=== PATIENT | male | born 2000 | race African-American/Black ===

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

== ENCOUNTER 2020-05-16 13:20 | Emergency (ER) | payer OTHER ==
[~2020-05-16] VITALS: Ht 210.8 cm; Wt 58.6 kg
[~2020-05-16 13:20] MED LIST changes: +ONDA4TAB7 PO
[2020-05-16] MEDS ORDERED: ONDANSETRON PF 4 MG/2 ML VIAL. ONE (13:30)
[2020-05-16] MEDS: ONDANSETRON PF 4 MG/2 ML VIAL. IVP ONE (13:34)
[2020-05-16] MEDS: IV NORMAL SALINE 1,000ML 1,000 ML IV ONE (13:34)
[2020-05-16 13:52] LABS: BASO % 1 % (0-3); EOS % 1 % (0-3); HEMATOCRIT 45.8 % (39.0-53.0); HEMOGLOBIN 15.4 g/dL (13.0-17.5); LYMPH # 2.1 x10^3/uL (1.0-4.8); LYMPH % 26 % (24-48); MEAN CORPUSCULAR HEMOGLOBIN 31 pg (25-35); MEAN CORPUSCULAR HGB CONC 34 g/dL (31-37); MEAN CORPUSCULAR VOLUME 92 fL (79-100); MONO # 0.3 x10^3/uL (0.0-1.1); MONO % 4 % (0-9); NEUT # 5.6 x10^3uL (1.8-7.7); NEUT % 69 % (31-73); PLATELET COUNT 285 x10^3/uL (140-400); RED BLOOD COUNT 5.01 x10^6/uL (4.30-5.70); RED CELL DISTRIBUTION WIDTH 13.1 % (11.5-14.5); WHITE BLOOD COUNT 8.1 x10^3/uL (4.0-11.0)
[2020-05-16 13:55] LABS: CALCIUM 10.3 mg/dL (8.5-10.1); GFR 116.5; POTASSIUM 4.4 mmol/L (3.5-5.1)
[2020-05-16 14:01] LABS: ALBUMIN/GLOBULIN RATIO 1.6 (1.0-1.7); TOTAL BILIRUBIN 0.7 mg/dL (0.2-1.0); TOTAL PROTEIN 8.2 g/dL (6.4-8.2)
--- NOTE | 2020-05-16 14:02 | RAD ---
ABDOMEN AP Clinical Indication: Reason: periumbilical abdominal pain, vomiting / Spl. Instructions: / History: Comparison: None. Findings: The visualized lung bases are clear. Small amount of air in the stomach. Mild stool in the rectum. No dilated loops of bowel are seen. The bowel gas pattern is nonobstructive. No obvious organomegaly. There is no radiopaque foreign body or calculus. There is no acute bony abnormality. IMPRESSION: Nonobstructive bowel gas pattern. Electronically signed by: Fahad Mak MD (05/16/2020 1:59 PM) [id number]
[2020-05-16] MEDS ORDERED: ONDA4TAB12 PO (14:05)
--- NOTE | 2020-05-16 14:08 | PHYS DOC ---
Past History Past Medical History: Asthma Past Surgical History: Other Additional Past Surgical Histo: right thumb surgery Smoking: Second-hand Alcohol Use: Rarely Drug Use: Marijuana General Adult EDM: Chief Complaint: ABDOMINAL PAIN HPI: HPI: 19-year-old male presents with nausea and vomiting. This started around 7 AM this morning. The patient was feeling fine yesterday. He has been unable to keep any liquids or solids today. He has not had a fever. He has some generalized abdominal cramping that started after the vomiting. He has no known sick contacts. No known COVID-19 exposures. Review of Systems: Review of Systems: Constitutional: chills Eyes: Denies change in visual acuity HENT: Denies nasal congestion or sore throat Respiratory: Denies cough or shortness of breath Cardiovascular: Denies chest pain or edema GI: Generalized abdominal pain, nausea, vomiting. Denies bloody stools or diarrhea : Denies dysuria Musculoskeletal: Denies back pain or joint pain Integument: Denies rash Neurologic: Denies headache, focal weakness or sensory changes Endocrine: Denies polyuria or polydipsia Lymphatic: Denies swollen glands Psychiatric: Denies depression or anxiety Heart Score: Risk Factors: Risk Factors: DM, Current or recent (<one month) smoker, HTN, HLP, family history of CAD, obesity. Risk Scores: Score 0 - 3: 2.5% MACE over next 6 weeks - Discharge Home Score 4 - 6: 20.3% MACE over next 6 weeks - Admit for Clinical Observation Score 7 - 10: 72.7% MACE over next 6 weeks - Early Invasive Strategies Current Medications: Current Meds: Current Medications Medications (Trade) Dose Ordered Sig/Niya Start Time Stop Time Status Last Admin Dose Admin Ondansetron HCl (Zofran) 4 mg 1X ONCE 05/16/20 13:45 05/16/20 13:48 DC 05/16/20 13:34 4 MG Sodium Chloride 1,000 ml @ 1,000 mls/hr 1X ONCE 05/16/20 13:45 05/16/20 14:44 05/16/20 13:34 1,000 MLS/HR Allergies: Allergies: Allergies Coded Allergies Type Severity Reaction Last Updated Verified No Known Drug Allergies 11/10/19 No Physical Exam: PE: Constitutional: Well developed, well nourished, no acute distress, non-toxic appearance. [] HENT: Normocephalic, atraumatic, bilateral external ears normal, oropharynx moist, no oral exudates, nose normal. [] Eyes: PERRLA, EOMI, conjunctiva normal, no discharge. [] Neck: Normal range of motion, no tenderness, supple, no stridor. [] Cardiovascular: Heart rate regular rhythm, no murmur [] Lungs & Thorax: Bilateral breath sounds clear to auscultation [] Abdomen: Bowel sounds normal, soft, no tenderness, no masses, no pulsatile masses. [] Skin: Warm, dry, no erythema, no rash. [] Back: No tenderness, no CVA tenderness. [] Extremities: No tenderness, no cyanosis, no clubbing, ROM intact, no edema. [] Neurologic: Alert and oriented X 3, normal motor function, normal sensory function, no focal deficits noted. [] Psychologic: Affect normal, judgement normal, mood normal. [] Current Patient Data: Labs: Laboratory Tests Test 05/16/20 13:35 White Blood Count 8.1 x10^3/uL (4.0-11.0) Red Blood Count 5.01 x10^6/uL (4.30-5.70) Hemoglobin 15.4 g/dL (13.0-17.5) Hematocrit 45.8 % (39.0-53.0) Mean Corpuscular Volume 92 fL (79-100) Mean Corpuscular Hemoglobin 31 pg (25-35) Mean Corpuscular Hemoglobin Concent 34 g/dL (31-37) Red Cell Distribution Width 13.1 % (11.5-14.5) Platelet Count 285 x10^3/uL (140-400) Neutrophils (%) (Auto) 69 % (31-73) Lymphocytes (%) (Auto) 26 % (24-48) Monocytes (%) (Auto) 4 % (0-9) Eosinophils (%) (Auto) 1 % (0-3) Basophils (%) (Auto) 1 % (0-3) Neutrophils # (Auto) 5.6 x10^3uL (1.8-7.7) Lymphocytes # (Auto) 2.1 x10^3/uL (1.0-4.8) Monocytes # (Auto) 0.3 x10^3/uL (0.0-1.1) Eosinophils # (Auto) 0.0 x10^3/uL (0.0-0.7) Basophils # (Auto) 0.0 x10^3/uL (0.0-0.2) Sodium Level 142 mmol/L (136-145) Potassium Level 4.4 mmol/L (3.5-5.1) Chloride Level 105 mmol/L (98-107) Carbon Dioxide Level 22 mmol/L (21-32) Anion Gap 15 (6-14) H Blood Urea Nitrogen 7 mg/dL (8-26) L Creatinine 1.0 mg/dL (0.7-1.3) Estimated GFR (Cockcroft-Gault) 116.5 BUN/Creatinine Ratio 7 (6-20) Glucose Level 113 mg/dL (70-99) H Calcium Level 10.3 mg/dL (8.5-10.1) H Total Bilirubin Pending Aspartate Amino Transferase (AST) Pending Alanine Aminotransferase (ALT) Pending Alkaline Phosphatase Pending Total Protein Pending Albumin Pending Albumin/Globulin Ratio Pending Vital Signs: Vital Signs Date Time Temp Pulse Resp B/P (MAP) Pulse Ox O2 Delivery O2 Flow Rate FiO2 05/16/20 13:27 97.8 58 14 116/87 (97) 100 Room Air EKG: EKG: [] Radiology/Procedures: Radiology/Procedures: [] Impressions: ABDOMEN AP Clinical Indication: Reason: periumbilical abdominal pain, vomiting / Spl. Instructions: / History: Comparison: None. Findings: The visualized lung bases are clear. Small amount of air in the stomach. Mild stool in the rectum. No dilated loops of bowel are seen. The bowel gas pattern is nonobstructive. No obvious organomegaly. There is no radiopaque foreign body or calculus. There is no acute bony abnormality. IMPRESSION: Nonobstructive bowel gas pattern. Electronically signed by: Fahad Zuñiga MD (05/16/2020 1:59 PM) [id number] DICTATED AND SIGNED BY: FAHAD ZUIÑGA MD DATE: 05/16/20 1359 CC: BELLE MORRISSEY DO; GIAN MONTERO ~ Course & Med Decision Making: Course & Med Decision Making Pertinent Labs and Imaging studies reviewed. (See chart for details) The patient's labs are unremarkable. We gave him a liter of normal saline and 4 mg of Zofran IV. He has had no further vomiting. His urinalysis is negative for infection. This is likely a viral illness. I will discharge him with Zofran. He is stable for discharge at this time. [] Alyssa Disclaimer: Alyssa Disclaimer: This electronic medical record was generated, in whole or in part, using a voice recognition dictation system. Departure Departure: Impression: Primary Impression: Nausea & vomiting Qualified Codes: R11.2 - Nausea with vomiting, unspecified Disposition: HOME/RESIDENCE PRIOR TO ADM Condition: STABLE Referrals: GIAN MONTERO (PCP) Patient Instructions: Nausea and Vomiting, Stmu-en-Xqoe Scripts Ondansetron (ONDANSETRON ODT) 4 Mg Tab.rapdis 1 TAB PO PRN Q6-8HRS PRN for VOMITING, #16 TAB Prov: BELLE MORRISSEY DO 05/16/20 Justification of Admission: Justification of Admission: Justification of Admission Dx: N/A BELLE MORRISSEY DO May 16, 2020 14:08
[2020-05-16 15:16] LABS: BACTERIA,URINE 0 /HPF (0-FEW); BILIRUBIN,URINE NEG (NEG); CLARITY,URINE CLEAR; COLOR,URINE YELLOW; GLUCOSE,URINE NEG (NEG); NITRITE,URINE NEG (NEG); RBC,URINE 0 /HPF (0-2); SQUAMOUS EPITHELIAL CELL,UR OCC /LPF
[2020-05-16 15:37] VITALS: BP 122/93
== END 2020-05-16 15:35 | disposition home or self-care (01) ==
LOC: ER 13:20
DX: R11.2 Nausea with vomiting, unspecified (principal); R10.84 Generalized abdominal pain; J45.909 Unspecified asthma, uncomplicated; Z77.22 Contact with and (suspected) exposure to environmental tobacco smoke (acute) (chronic)
CPT/HCPCS: 36415; 74018; 80053; 81001; 85025; 96361; 96374; 99284; J2405; J7030

== ENCOUNTER 2021-03-09 09:21 | Emergency (ER) | payer OTHER ==
[~2021-03-09] VITALS: Ht 182.9 cm; Wt 64.1 kg
[~2021-03-09 09:21] MED LIST changes: -CETI10TA24 PO; +CETI10TA74 PO; +ONDA4TAB12 PO
--- NOTE | 2021-03-09 09:31 | PHYS DOC ---
Past History Past Medical History: Asthma Past Surgical History: Other Additional Past Surgical Histo: right thumb surgery Smoking: Second-hand Alcohol Use: Rarely Drug Use: Marijuana Adult General HPI HPI Patient is a 20-year-old male presenting for shortness of breath. Has history of asthma, typically takes Flovent his maintenance inhaler and utilizes rescue inhaler prophylactically before working out otherwise states he uses it a couple times a month. Reports change of weather and worsening allergies in local area have caused him to have rhinorrhea, congestion and dry cough that is worsened his bronchospasm. He has had to utilize his albuterol rescue inhaler more than usual but ran out yesterday. States he woke up this morning at 2 AM having an acute coughing fit and chest tightness which is not gone away. He has not been able to sleep. He reports this feels like prior asthma exacerbation in the past. He has been hospitalized many times for asthma but is never been intubated. No other significant medical issues, denies any tobacco, alcohol or other drug use. No significant family medical issue for early cardiac disease. No fever, sick contacts, COVID-19 exposure Review of Systems Review of Systems Fourteen body systems of review of systems have been reviewed. See HPI for pertinent positives and negative responses, other vernon all other systems are negative, non-pertinent or non-contributory Allergies Allergies Allergies Coded Allergies Type Severity Reaction Last Updated Verified No Known Drug Allergies 11/10/19 No Physical Exam Physical Exam Constitutional: Well developed, well nourished, no acute distress, non-toxic appearance. Ambulatory without issues HENT: Normocephalic, atraumatic, bilateral external ears normal, oropharynx moist, no oral exudates, nose normal. Eyes: PERRLA, EOMI, conjunctiva normal, no discharge. Neck: Normal range of motion, no tenderness, supple, no stridor. Cardiovascular: Heart rate regular, sinus rhythm, no murmurs rubs or gallops Lungs & Thorax: Increased work of breathing but no tachypnea, diminished lung sounds bilaterally with end expiratory wheezing present, no accessory muscle use Abdomen: Bowel sounds normal, soft, no tenderness, no masses, no pulsatile masses. Nonsurgical abdomen, no peritoneal signs Skin: Warm, dry, no erythema, no rash. Back: No tenderness, no CVA tenderness. Extremities: No tenderness, no cyanosis, no clubbing, ROM intact, no edema. Neurologic: Alert and oriented X 3, grossly normal motor & sensory function, no focal deficits noted. Psychologic: Affect normal, judgement normal, mood normal. Current Patient Data Vital Signs Vital Signs Date Time Temp Pulse Resp B/P (MAP) Pulse Ox O2 Delivery O2 Flow Rate FiO2 03/09/21 09:51 96 Room Air 03/09/21 09:51 99.5 68 20 150/76 (100) Vital Signs Date Time Temp Pulse Resp B/P (MAP) Pulse Ox O2 Delivery O2 Flow Rate FiO2 03/09/21 09:51 99.5 68 20 150/76 (100) 100 Room Air Lab Results Laboratory Tests Test 03/09/21 09:28 White Blood Count 5.5 x10^3/uL Red Blood Count 5.08 x10^6/uL Hemoglobin 15.4 g/dL Hematocrit 46.6 % Mean Corpuscular Volume 92 fL Mean Corpuscular Hemoglobin 30 pg Mean Corpuscular Hemoglobin Concent 33 g/dL Red Cell Distribution Width 13.4 % Platelet Count 221 x10^3/uL Neutrophils (%) (Auto) 55 % Lymphocytes (%) (Auto) 29 % Monocytes (%) (Auto) 15 % Eosinophils (%) (Auto) 0 % Basophils (%) (Auto) 1 % Neutrophils # (Auto) 3.0 x10^3uL Lymphocytes # (Auto) 1.6 x10^3/uL Monocytes # (Auto) 0.8 x10^3/uL Eosinophils # (Auto) 0.0 x10^3/uL Basophils # (Auto) 0.0 x10^3/uL Sodium Level 143 mmol/L Potassium Level 3.6 mmol/L Chloride Level 106 mmol/L Carbon Dioxide Level 25 mmol/L Anion Gap 12 Blood Urea Nitrogen 6 mg/dL Creatinine 1.1 mg/dL Estimated GFR (Cockcroft-Gault) 103.3 Glucose Level 96 mg/dL Calcium Level 10.0 mg/dL Troponin I Quantitative < 0.017 ng/mL Current Medications Medications (Trade) Dose Ordered Sig/Niya Route PRN Reason Start Time Stop Time Status Last Admin Dose Admin Albuterol Sulfate (Ventolin) 2.5 mg 1X ONCE NEB 03/09/21 09:45 03/09/21 09:46 DC 03/09/21 09:45 Prednisone (Prednisone) 60 mg 1X ONCE PO 03/09/21 09:45 03/09/21 09:46 DC 03/09/21 09:45 Albuterol Sulfate (Ventolin) 2.5 mg 1X ONCE NEB 03/09/21 10:45 03/09/21 10:46 EKG EKG EKG ordered and interpreted by myself at 0935 hrs. as sinus rhythm at 64 bpm, unremarkable intervals, no axis deviation, no acute ischemic findings, no STEMI Radiology/Procedures Radiology/Procedures Chest AP portable at 0928: Reason for examination: Short of breath. The heart size is normal. Mediastinum is unremarkable. Lung leon are clear. No acute bony abnormalities are seen. Impression: No acute cardiopulmonary disease. Electronically signed by: Eliad Linares MD (03/09/2021 10:01 AM) [facility] Heart Score C/O Chest Pain: Yes HEART Score for Chest Pain: HEART Score for Chest Pain Response (Comments) Value History Slighlty/Non-Suspicious 0 ECG Normal 0 Age < 45 0 Risk Factors No Risk Factors 0 Troponin < Normal Limit 0 Total 0 Risk Factors: Risk Factors: DM, Current or recent (<one month) smoker, HTN, HLP, family history of CAD, obesity. Risk Scores: Risk Factors: DM, Current or recent (<one month) smoker, HTN, HLP, family history of CAD, obesity. Course & Med Decision Making Course & Med Decision Making Vitals stable, HPI and physical exam nonconcerning for emergent or surgical issues. ER work-up obtained and grossly nonconcerning Discussed most likely diagnosis of asthma exacerbation likely caused by change in weather and recent uptick in local allergies. Patient responded to ER intervention including x2 albuterol nebulized treatments and 60 mg prednisone Joint decision to discharge home with continued prednisone burst and refill albuterol inhaler. Patient has good access to primary care physician, can be seen this upcoming week, can call office tomorrow for refill of Flovent etc. Strict return precautions discussed with good understanding by patient, all questions and concerns addressed prior to ER departure Dragon Disclaimer Dragon Disclaimer This electronic medical record was generated, in whole or in part, using a voice recognition dictation system. Departure Departure: Impression: Primary Impression: Asthma exacerbation Disposition: HOME / SELF CARE / HOMELESS Condition: IMPROVED Referrals: GIAN MONTERO (PCP) Patient Instructions: Asthma, Acute Bronchospasm Additional Instructions: You were seen for an asthma exacerbation. Your exacerbation was likely caused by a change in weather and uptick in local seasonal allergies. You should be checking your peak flows daily and taking all of your controller and rescue inhalers as previously prescribed. It may take a few days for the steroids to begin to work, but use albuterol as needed for the next few days to help with symptoms. Prescriptions for both of these medications were provided to you on ER departure which you should fill and utilize immediately as directed by medication label. As discussed, you need to call your primary care physician first thing tomorrow to review ER visit today, discussed need for close follow- up in upcoming week for repeat evaluation and ensure you get new refills of your home albuterol inhaler and Flovent inhalers. Return to the ED if you develop worsening cough, shortness of breath, fever > 101, chest pain, or any other new or concerning symptoms. You need to follow up with your primary care doctor as soon as possible as a severe asthma exacerbation can be fatal. Scripts Albuterol Sulfate (PROAIR HFA INHALER) 8.5 Gm Hfa.aer.ad 2 PUFF IH PRN Q4-6HRS PRN for wheezing for 21 Days, #1 INHALER 0 Refills Prov: GONZALEZ RITCHIE DO 03/09/21 Prednisone (PREDNISONE) 20 Mg Tablet 40 MG PO DAILY for ASTHMA EXACERBATION for 5 Days, #10 TAB Prov: GONZALEZ RITCHIE DO 03/09/21 GONZALEZ RITCHIE DO March 09, 2021 09:31
[2021-03-09] MEDS ORDERED: predniSONE 20 MG TABLET PO ONE (09:45)
[2021-03-09] MEDS ORDERED: ALBUTEROL SULFATE 2.5 MG/3 ML NEBU. NEB ONE ×2 (09:45→10:45)
[2021-03-09 09:51] VITALS: BP 150/76
[2021-03-09 09:55] LABS: BASO % 1 % (0-3); EOS % 0 % (0-3); HEMATOCRIT 46.6 % (39.0-53.0); HEMOGLOBIN 15.4 g/dL (13.0-17.5); LYMPH # 1.6 x10^3/uL (1.0-4.8); LYMPH % 29 % (24-48); MEAN CORPUSCULAR HEMOGLOBIN 30 pg (25-35); MEAN CORPUSCULAR HGB CONC 33 g/dL (31-37); MEAN CORPUSCULAR VOLUME 92 fL (79-100); MONO # 0.8 x10^3/uL (0.0-1.1); MONO % 15 % (0-9); NEUT % 55 % (31-73); PLATELET COUNT 221 x10^3/uL (140-400); RED BLOOD COUNT 5.08 x10^6/uL (4.30-5.70); RED CELL DISTRIBUTION WIDTH 13.4 % (11.5-14.5); WHITE BLOOD COUNT 5.5 x10^3/uL (4.0-11.0)
--- NOTE | 2021-03-09 10:03 | RAD ---
Chest AP portable at 0928: Reason for examination: Short of breath. The heart size is normal. Mediastinum is unremarkable. Lung leon are clear. No acute bony abnormali ties are seen. Impression: No acute cardiopulmonary disease. Electronically signed by: Elida Linares MD (03/09/2021 10:01 AM) [place]
[2021-03-09 10:04] LABS: CREATININE 1.1 mg/dL (0.7-1.3); GFR 103.3; POTASSIUM 3.6 mmol/L (3.5-5.1)
--- NOTE | 2021-03-09 10:46 | EKG ---
[address] [address] Test Date: 2021-03-09 Test Time: 09:28:07 Pat Name: PAULINA INGRAM Department: Room: Gender: M Manager Garden: : 2000 Requested By: GONZALEZ RITCHIE Order Number: [id number] Reading MD: Measurements Intervals [place] Rate: 64 P: 52 NH: 138 QRS: 87 QRSD: 76 T: 52 QT: 366 QTc: 381 Interpretive Statements SINUS RHYTHM OTHERWISE NORMAL ECG RI6.02 No previous ECG available for comparison
[2021-03-09] MEDS ORDERED: PRED20TA PO (10:52)
[2021-03-09] MEDS ORDERED: ALBU2.5V8 IH (10:53)
== END 2021-03-09 11:25 | disposition home or self-care (01) ==
LOC: ER 09:21
DX: J45.901 Unspecified asthma with (acute) exacerbation (principal); F12.10 Cannabis abuse, uncomplicated; Z77.22 Contact with and (suspected) exposure to environmental tobacco smoke (acute) (chronic)
CPT/HCPCS: 36415; 71045; 80048; 84484; 85025; 93005; 94640; 99285; J7512; J7613

== ENCOUNTER 2021-12-25 18:21 | Emergency (ER) | payer OTHER ==
[~2021-12-25] VITALS: Ht 182.9 cm; Wt 64.1 kg
[2021-12-25 18:40] VITALS: BP 131/66
[2021-12-25] MEDS ORDERED: DEXAMETHASONE 4 MG TABLET PO ONE (18:45)
[2021-12-25] MEDS ORDERED: ALBUTEROL SULFATE 8GM INHALER. INH ONE (18:45)
--- NOTE | 2021-12-25 18:57 | PHYS DOC ---
Past History Past Medical History: Asthma Additional Past Medical Histor: ALLERGIES Past Surgical History: No Surgical History Additional Past Surgical Histo: right thumb surgery Smoking: Second-hand Alcohol Use: None Drug Use: Marijuana Adult General Chief Complaint Chief Complaint: SHORTNESS OF BREATH HPI HPI Patient is a 21-year-old male, with a history of asthma who presents with a chief complaint of asthma exacerbation. [place] this week and is out of his albuterol inhaler. States he usually uses it 2-3 times a week but has not been able to use it over the last couple of days and was unable to get into his primary care physician. Denies any recent travels, traumas, illness, fevers, chest pain, abdominal pain, nausea, vomiting, diarrhea. States he has been vaccinated for COVID. States he is eating and drinking normally. States he is making urine and stool normally for him. Review of Systems Review of Systems Review of systems otherwise unremarkable except noted in HPI Allergies Allergies Allergies Coded Allergies Type Severity Reaction Last Updated Verified No Known Drug Allergies 11/10/19 No Physical Exam Physical Exam Constitutional: Well developed, well nourished, no acute distress, non-toxic appearance. [] HENT: Normocephalic, atraumatic, oropharynx moist, Eyes: conjunctiva normal, no discharge. [] Neck: Normal range of motion, no tenderness, supple, no stridor. [] Cardiovascular:Heart rate regular rhythm, no murmur [] Lungs & Thorax: No respiratory distress, mild end expiratory wheeze, no retractions or increased work of breathing Neurologic: Alert and oriented X 3, normal motor function, normal sensory function, no focal deficits noted. [] Psychologic: Affect normal, judgement normal, mood normal. [] EKG EKG [] Radiology/Procedures Radiology/Procedures [] Heart Score C/O Chest Pain: No Risk Factors: Risk Factors: DM, Current or recent (<one month) smoker, HTN, HLP, family history of CAD, obesity. Risk Scores: Risk Factors: DM, Current or recent (<one month) smoker, HTN, HLP, family history of CAD, obesity. Course & Med Decision Making Course & Med Decision Making Patient is a 21-year-old male who presents with asthma exacerbation and medication refill need Vital signs not concerning. Physical exam noted above. Given breathing treatment and steroids. Given inhaler for home. Given prescription for albuterol. Discussed asthma and symptom management. Advised to follow-up since he came with his primary care physician. Gave return precautions to the ED. Patient grateful, verbalized understanding and agreed with plan of discharge. [] Dragon Disclaimer Dragon Disclaimer This electronic medical record was generated, in whole or in part, using a voice recognition dictation system. Departure Departure: Impression: Primary Impression: Asthma exacerbation Disposition: HOME / SELF CARE / HOMELESS Condition: STABLE Referrals: GIAN MONTERO (PCP) Patient Instructions: Asthma Attacks, Prevention, Asthma, Adult Additional Instructions: Thank you for coming into the emergency department tonight and allowing us to take care of you. Please read the attached information carefully to go over things we discussed. Please be sure to use your albuterol as prescribed and as we discussed. Please limit things that exacerbate your asthma and and no your triggers. Please call your primary care physician as soon as you can update your ED visit and set up a follow-up as soon as possible. Please come back with new or concerning symptoms as we discussed. LALO BENAVIDEZ MD Dec 25, 2021 18:57
== END 2021-12-25 19:33 | disposition home or self-care (01) ==
LOC: ER 18:21
DX: J45.901 Unspecified asthma with (acute) exacerbation (principal); Z77.22 Contact with and (suspected) exposure to environmental tobacco smoke (acute) (chronic)
CPT/HCPCS: 94640; 99283; 94664